=== PATIENT | female | born 2005 | race Caucasian/White ===

== ENCOUNTER → 2025-07-01 08:38 | Outpatient (BNVA) | payer MEDICAID, SELFPAY | PROVIDERS: PCP Family Medicine; Visit Provider Family Medicine | DX: N91.1 Secondary amenorrhea (principal); E66.9 Obesity, unspecified | CPT/HCPCS: 80053; 80061; 82670; 83001; 83002; 83036; 83525; 84146; 84403; 84439; 84443; 84481; 84703; 85025 ==

== ENCOUNTER 2025-08-26 16:19 | Outpatient (CLI) | payer MEDICAID, SELFPAY ==
--- NOTE | 2025-08-26 16:30 | US_ITS ---
WS: [id number] US pelvic complete* [id number] HISTORY: N91.2 - Amenorrhea, unspecified COMPARISON: None available. Uterus: 10.2 cm x 4.1 cm x 2.9 cm. Normal size anteverted uterus. No fibroid or mass. Endometrium: 0.6 cm. Negative by transabdominal imaging. Right ovary: 3.0 cm x 2.0 cm x 2.4 cm. Normal size and vascularity, no cystic or solid masses. Left ovary: 2.4 cm x 2.0 cm x 1.3 cm. Normal size and vascularity, no cystic or solid masses. No free fluid in the cul-de-sac. US/US pelvic complete* [id number] IMPRESSION: 1. Patient refused transvaginal imaging. 2. No abnormality identified by transabdominal imaging. Transvaginal imaging w ould provide additional information concerning the endometrium. 3. Normal size ovaries by transabdominal imaging. Transvaginal imaging would p rovide additional information concerning possible PCOS.
== END 2025-08-26 16:20 | disposition home or self-care (01) ==
LOC: RAD 16:21
PROVIDERS: PCP Nurse Practitioner Family; Visit Provider Nurse Practitioner Family
DX: N91.2 Amenorrhea, unspecified (principal)
CPT/HCPCS: 76856

== ENCOUNTER → 2025-08-30 11:39 | Outpatient (BNVA) | payer MEDICAID, SELFPAY | PROVIDERS: PCP Nurse Practitioner Family; Visit Provider Nurse Practitioner Family | DX: E66.9 Obesity, unspecified (principal) | CPT/HCPCS: 83525 ==